=== PATIENT | female | born 1955 | race Caucasian/White ===

== ENCOUNTER 2016-08-30 19:07 | Emergency (ER) | payer OTHER ==
[~2016-08-30] VITALS: Ht 147.3 cm; Wt 65.0 kg
[~2016-08-30 19:07] MED LIST: FLEXERIL10 MG PO; IBUPROFEN800 MG PO; KLONOPIN0.125 MG PO; LEVOTHYROX1 MCG/30 M PO; LEXAPRO10 MG PO; METOPROLOL SUCC50 MG PO; NAPROSYN500 MG PO; PRILOSEC40 MG PO; VICODIN 5-3001 EACH PO; VICODIN,LORT1 TABLET PO; ZOCOR5 MG PO
[2016-08-30 20:09] LABS: HEMATOCRIT 41.6 % (36.0-46.0); MCH 27.9 PG (29.0-34.0); MCHC 31.3 G/DL (30.0-36.0); MCV 89.3 FL (83-99); PLATELET COUNT 368 K/uL (156-360); RBC DIS.WIDTH-CV 13.2 % (11.8-14.6); RBC DIS.WIDTH-SD 43.8 % (39-53); RED BLOOD COUNT 4.66 M/uL (3.80-5.20); WHITE BLOOD COUNT 19.2 K/uL (4.1-10.2)
[2016-08-30 20:27] LABS: CHLORIDE 104 mEq/L (99-109); POTASSIUM 3.3 mEq/L (3.7-5.4); SODIUM 139 mEq/L (136-147)
[2016-08-30 20:29] LABS: GLUCOSE 142 mg/dL (70-99)
[2016-08-30 20:30] LABS: ANION GAP 12 MEQ/L (2-14)
[2016-08-30 20:33] LABS: GFR ESTIMATE (CALCULATED) 49 mL/min/
[2016-08-30 20:34] LABS: UREA NITROGEN (BUN) 17 mg/dL (9-23)
[2016-08-30 22:52] LABS: ADD MIUA? YES; BILIRUBIN NEGATIVE; BLOOD SMALL; COLOR YELLOW ((YELLOW)); GLUCOSE (STRIP) 50; KETONES 5; LEUKOCYTES NEGATIVE; NITRITE NEGATIVE; PROTEIN (STRIP) 30; SPECIFIC GRAVITY 1.019 (1.000-1.030); UROBILINOGEN 0.2 MG/DL (0.2-1.0)
[2016-08-30 23:13] LABS: BACTERIA NONE SEEN /HPF; EPITHELIAL CELLS RARE /HPF; MUCUS TRACE /LPF; UCUL ADDED? NO; WHITE BLOOD CELLS 0-5 /HPF (0-5)
[2016-08-31] MEDS ORDERED: PERCOCET 5/31 TABLET PO (01:52)
[2016-08-31 02:05] VITALS: BP 142/88
== END 2016-08-31 02:05 | disposition home or self-care (01) ==
LOC: EME 19:07
DX: N13.2 Hydronephrosis with renal and ureteral calculous obstruction (principal); I10 Essential (primary) hypertension; G89.29 Other chronic pain
CPT/HCPCS: 74177; 80048; 81003; 85027; 99281; 99285; J1885; J2270; J2405; J3010; J7030